=== PATIENT | female | born 1970 | race Caucasian/White ===

== ENCOUNTER → 2024-01-01 14:40 | Outpatient (REF) | payer OTHER, SELFPAY | LOC: WDC 14:40 | PROVIDERS: ATTENDING PHYSICIAN Obstetrics & Gynecology; FAMILY PHYSICIAN Physician Assistant Medical | DX: Z12.31 Encounter for screening mammogram for malignant neoplasm of breast (principal) | CPT/HCPCS: 77063; 77067 ==

== ENCOUNTER → 2024-06-28 08:20 | Outpatient (REF) | payer OTHER, SELFPAY | LOC: DHCBC/DCA 08:20 | PROVIDERS: ATTENDING PHYSICIAN Internal Medicine; FAMILY PHYSICIAN Family Medicine | DX: I25.10 Atherosclerotic heart disease of native coronary artery without angina pectoris (principal); R06.09 Other forms of dyspnea; R55 Syncope and collapse; Z95.0 Presence of cardiac pacemaker; I47.29 Other ventricular tachycardia | CPT/HCPCS: 78452; 93017; A9500; J2785 ==

== ENCOUNTER → 2024-11-14 16:02 | Outpatient (REF) | payer OTHER, SELFPAY | LOC: RAD 16:02 | PROVIDERS: ATTENDING PHYSICIAN Physician Assistant Medical | DX: J40 Bronchitis, not specified as acute or chronic (principal) | CPT/HCPCS: 71046 ==

== ENCOUNTER → 2025-01-06 11:11 | Outpatient (REF) | payer OTHER, SELFPAY | LOC: HWRAD 11:11 | PROVIDERS: ATTENDING PHYSICIAN Physician Assistant; FAMILY PHYSICIAN Physician Assistant Medical | DX: E04.1 Nontoxic single thyroid nodule (principal) | CPT/HCPCS: 76536 ==

== ENCOUNTER 2025-03-17 17:23 | Inpatient (IN) | payer OTHER, SELFPAY ==
[2025-03-17] VITALS (7 sets, daily range): BP systolic 118–149; BP diastolic 74–93; BMI 31.9
[2025-03-17 13:56] LABS: % Basophils 0.5 % (0-2); % Eosinophils 1.5 % (0-6); % Immature Granulocytes 0.3 % (0-0.5); % Lymphocytes 18.1 % (20.5-51.1); % Monocytes 6.6 % (1.7-9.3); Absolute Eosinophils 0.1 10^3/uL (0-0.7); Absolute Lymphocytes 1.4 10^3/uL (1.2-3.4); Absolute Monocytes 0.5 10^3/uL (0.1-0.6); Absolute Neutrophils 5.5 10^3/uL (1.4-6.5); Hematocrit 38.4 % (37.0-47.0); Hemoglobin 13.5 g/dL (12.0-16.0); Mean Corp Hgb Conc. 35.2 g/dL (33.0-37.0); Mean Corpuscular Hgb 30.6 pg (27.0-31.0); Mean Corpuscular Volume 87.1 fL (81.0-99.0); Mean Platelet Volume 10.8 fL (7.4-10.4); Nucleated Red Blood Cells % 0 %; Platelet Count 195 10^3/uL (130-400); Red Blood Cell Count 4.41 10^6/uL (4.20-5.40); Red Cell Dist. Width 11.9 % (11.5-14.5); White Blood Cell Count 7.6 10^3/uL (4.8-10.8)
[2025-03-17 14:14] LABS: ALT (SGPT) 25 U/L (0-35); AST (SGOT) 30 U/L (14-36); Albumin 4.6 g/dl (3.5-5.0); Alkaline Phosphatase 65 U/L (38-126); Blood Urea Nitrogen 12 mg/dl (7-17); Calcium 9.7 mg/dl (8.4-10.2); Carbon Dioxide 25 mmol/L (22-30); Chloride 109 mmol/L (98-107); Glucose 100 mg/dl (70-99); Sodium 140 mmol/L (135-145); Total Bilirubin 0.7 mg/dl (0.2-1.3); Total Protein 6.9 g/dl (6.3-8.2); eGFR > 60.00
[2025-03-17 14:21] LABS: Troponin I < 0.012 ng/ml
--- NOTE | 2025-03-17 16:25 | ED.GENMED ---
History of Present Illness
General
Chief Complaint: Chest Problem
Source: patient
Exam Limitations: none
Time Seen by Provider: 03/17/25 16:07
History of Present Illness
History of Present Illness:
54-year-old female presents in referral from cardiology office. She has a history of heart block requiring pacemaker. She had an episode yesterday which sounds like a near syncopal episode. She reported this episode to the vice and was called by
cardiology today saying she had an episode of heart rate in the 220s. She was advised to come here for admission and possible defibrillator placement while here. Currently she has no chest pain. Her only complaint is slight anxiety about her
admission. No leg swelling. No fevers.
Past History
Past History
ED Past Medical History: HTN and Hypothyroidism
ED Past Surgical History:
Social History
Tobacco: Non-smoker
Alcohol: None
Personal:
Living: with family
Phy Exam
Physical Exam
Physical Exam:
General: Well-appearing female no acute respiratory distress
HEENT normocephalic atraumatic
Heart: Slightly tachycardic but regular lungs: Clear no wheeze
Extremities: No cyanosis or edema
Skin: Warm no rash
Course
Orders/Labs/Results
Orders:
Orders
03/17/25 13:26
Electrocardiogram (*1) Urgent
Reason for Study: Chest Pain
EKG- Treatment ONCE
03/17/25 13:46
Complete Blood Count/With Diff Urgent
Comprehensive Metabolic Panel Urgent
Troponin I Urgent
Abnormal Lab Results
03/17/25
13:46
MPV 10.8 H fL
(7.4-10.4)
Lymphocytes % 18.1 L %
(20.5-51.1)
Chloride 109 H mmol/L
(98-107)
Glucose 100 H mg/dl
(70-99)
03/17/25 13:46
03/17/25 13:46
Vital Signs
Initial and Last Documented VS:
Initial Vital Signs
Temp Pulse Resp BP Pulse Ox
98.2 F 104 22 149/93 98
03/17/25 13:37 03/17/25 13:37 03/17/25 13:37 03/17/25 13:37 03/17/25 13:37
Last Documented Vital Signs
Temp Pulse Resp BP Pulse Ox
98.3 F 105 18 139/83 97
03/17/25 16:10 03/17/25 16:10 03/17/25 16:10 03/17/25 16:10 03/17/25 16:10
MDM/Problems Addressed
Differential Diagnosis Includes:
Patient sent in by cardiology for tacky arrhythmia she sustained yesterday that was caught on her pacemaker. She had near syncopal symptoms with this episode. She was advised to come here for admission and defibrillator placement. Cardiology made
aware that she was here labs reviewed without significant finding. She is stable with slight tachycardia here. Will admit to medicine per cardiology recommendation
*Critical Care Note
Total Time (30-74mins, 75-104mins- exclusive of procedures): Not Applicable
ED Attending Note
-
Portions of this chart may have been created with voice recognition software.� Occasional wrong word or��sound alike� substitutions may have occurred due to the inherent limitations of voice recognition software.
Discharge Plan
Departure
Patient Disposition: Admit
Date of Disposition: 03/17/25
Time of Disposition: 16:28
Presentation/result/management discussed w/ accepting MD/DO: Hospitalist
Discharge Problem:
Near syncope
Prescriptions:
No Action
cetirizine 10 MG tablet
10 mg PO DAILY
levothyroxine 88 MCG tablet
88 mcg PO DAILY
diphenhydramine-acetaminophen [Tylenol PM Extra Strength] 25-500 mg Tablet
2 tab PO HSPRN PRN (Reason: sleep) Qty: 0
Visbiome 112.5 billion cell Capsule
1 cap PO DAILY Qty: 0
multivitamin Tablet
1 tab PO DAILY
losartan-hydrochlorothiazide 100-12.5 mg Tablet
1 tab PO DAILY
verapamil 180 mg Tablet Extended Release
180 mg PO QPM
aspirin 81 mg Tablet,Delayed Release (Dr/Ec)
81 mg PO QPM
rosuvastatin [Crestor] 5 mg Tablet
5 mg PO QPM
Interventions
Interventions:
*Risk Screen - Suicide Last Done: 03/17/25 13:37
*General Assessment Last Done: 03/17/25 13:37
*Neglect/Abuse Screening Last Done: 03/17/25 13:37
ED- Cardiac Assessment Last Done: 03/17/25 16:13
ED- Pulmonary Assessment Last Done: 03/17/25 16:13
Discharge Date and Time
Print Language: ALBANIAN
--- NOTE | 2025-03-17 16:26 | CON.CAR ---
Addendum entered and electronically signed by Khurram Page MD 03/17/25 17:35:
Patient seen and examined in collaboration with HEALTHCARE BUSINESS ANALYST; agree with below.
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
interrogation revealed NSVT.
- The patient will be admitted to the hospital service for observation over the weekend.
- Will add beta-sindhu; continue calcium channel sindhu, hold HCTZ for now.
- Patient will undergo an echocardiogram today to thoroughly reassess cardiac function.
- Patient will undergo cardiac catheterization on Thursday for definitive ischemic reevaluation.
- Patient will subsequently undergo device upgrade to an ICD, likely on Thursday.
- Telemetry monitoring; will follow.
Original Note:
Consultation
Consultation Request
Date/Time Consultation Requested: 03/17/2025 16:30
Date/Time Consultation Performed: 03/17/2025 16:30
Requesting Provider: Dr. Berger
Performing Provider: LAVONNE Joya for Dr. Page
Reason for Consultation: Ventricular tachycardia
Medical History
-
Chief Complaint: Presyncope
History of Present Illness:
Jodie Rowan is a 54-year-old female (known to Dr. Henry, her primary supervisor stave cutting), with PSVT, NSVT, first-degree AV block, tachycardia/bradycardia syndrome status post Medtronic dual-chamber pacemaker, elevated coronary artery calcium score,
hypertension, dyslipidemia, & family history of premature CAD presents to the emergency department with a chief complaint of presyncope. She was feeling unwell so sent a transmission from her device. A remote alert was received yesterday morning
by the outpatient device clinic for nonsustained ventricular tachycardia. NSVT lasted 9 seconds with a rate of 215 bpm. She is having no chest pain, shortness of breath, nor palpitations.
Past Medical History
Past Medical History: Arrhythmias (PSVT, NSVT), HTN, Hypercholesterolemia and Other (Elevated coronary artery calcium score)
Past Surgical History: , Gynecological and Other (ENT)
Social History
Tobacco: Non-Smoker (Never)
Alcohol: None
Personal:
Living: With Family
Family History
Family History: Reviewed & Not Pertinent
Allergies / Home Medications
Allergy/AdvReac Type Severity Reaction Status Date / Time
No Known Allergies Allergy Verified 03/17/25 16:09
�Medication �Instructions �Recorded �Confirmed �Type
cetirizine 10 mg tablet 10 mg PO DAILY Allergies 10/27/13 03/17/25 History
levothyroxine 88 mcg tablet 88 mcg PO DAILY Thyroid 01/17/17 03/17/25 History
Lactobac no.2-Bifidobac no.1-S. 1 cap PO DAILY ##0 04/23/23 03/17/25 History
thermo 112.5 billion cell capsule
(Visbiome)
diphenhydramine 25 2 tab PO HSPRN PRN sleep ##0 04/23/23 03/17/25 History
mg-acetaminophen 500 mg tablet
(Tylenol PM Extra Strength)
multivitamin 1 tab PO DAILY 10/13/23 03/17/25 History
losartan 100 1 tab PO DAILY 10/30/23 03/17/25 History
mg-hydrochlorothiazide 12.5 mg
tablet
aspirin 81 mg tablet,delayed 81 mg PO QPM 03/17/25 03/17/25 History
release
rosuvastatin 5 mg tablet (Crestor) 5 mg PO QPM 03/17/25 03/17/25 History
verapamil 180 mg tablet,extended 180 mg PO QPM 03/17/25 03/17/25 History
release
Review of Systems
-
History Source: Patient
All other systems: Negative unless noted
Constitutional: No Symptoms
EENT: No Symptoms
Respiratory: No Symptoms
Cardiac: No Symptoms
Abdomen/GI: No Symptoms
: No Symptoms
Musculoskeletal: No Symptoms
Skin: No Symptoms
Neurological: No Symptoms
Endocrine: No Symptoms
Hematologic/Lymphatic: No Symptoms
Physical Exam
Vital Signs
Temp Pulse Resp BP Pulse Ox
98.3 F 105 18 139/83 97
03/17/25 16:10 03/17/25 16:10 03/17/25 16:10 03/17/25 16:10 03/17/25 16:10
Lab Results
03/17/25 13:46
03/17/25 13:46
Troponin I < 0.012 ng/ml 03/17/25 13:46
Physical Exam
General: Well Developed, Well Nourished, No Apparent Distress and Comfortable
HEENT: Normocephalic, Anicteric and Moist Mucous Membranes
Respiratory: Clear and Non Labored Respirations
Cardiac: S1/S2 and Regular Rhythm; Negative Peripheral Edema
Breast: Deferred by me
GI: Soft, Non Distended and Normal Bowel Sounds
Rectal: Deferred by Provider
Genito-urinary: No Costovertebral Tender
Musculoskeletal: No Clubbing and No Cyanosis
Skin: Warm and Dry
Neuro: AO x 3
Hematologic/Lymphatic: No Lymphadenopathy
Psych: Calm
Impression / Plan
-
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
emergency department with a chief complaint of presyncope. A device alert the day prior to admission showed NSVT.
Primary supervisor stave cutting: Dr. Henry
NSVT
- Echocardiogram today, no acute findings by TTE 02/2023 I anticipate this will be unchanged
- Start metoprolol tartrate 25 mg twice daily
- Cardiac catheterization on Thursday given her elevated coronary artery calcium score, ventricular arrhythmia, and no recent ischemic evaluation
- If cardiac catheterization does not demonstrate acute findings, ICD
Hypertension
- Metoprolol tartrate started, hold HCTZ
- Follow BP, adjust medical therapy as indicated
Elevated coronary artery calcium score - 86% (RCA 20)
- Fasting lipid panel in a.m., goal LDL <70
- In the outpatient setting, her most recent LDL was 165 in March,
Tachycardia/bradycardia syndrome status post Medtronic dual-chamber pacemaker
Hypothyroidism with thyroid nodules, continue current dose of levothyroxine, TSH with reflex to T4 in a.m.
PSVT, continue beta-sindhu
SUBJECTIVE:
As above.
DATA:
Transthoracic echocardiogram, 03/17/2025:
Ordered & pending
Cardiac MRI, 10/15/2023:
Normal thickness, wall motion, contractility of the left ventricle. Calculated left ventricular ejection fraction of 55%.
There is no evidence for abnormal enhancement of the left ventricle. There is no evidence for infiltrative cardiomyopathy by MRI.
Left atrium is of normal size with AP dimension of 3.5 cm, within normal range of less than 4.1 cm.
The right atrium appears subjectively within normal limits.
The thoracic aorta has normal caliber.
There are no findings that would suggest sarcoidosis, including no evidence for mediastinal or hilar lymphadenopathy.
Normal morphology, wall motion, contractility of the right ventricle.
No significant valvular dephasing jet identified by MRI.
Data Reviewed
-
EKG: Report Reviewed by me
Radiology: Report Reviewed by me
MRI: Report Reviewed by me
Medical Tests (Nuc Med, Echo etc): Report Reviewed by me
Labs: Labs Reviewed by me
Old Records: Reviewed
--- NOTE | 2025-03-17 16:41 | HPS.HSE ---
Addendum entered and electronically signed by Eugenio Lyle MD 03/17/25 17:23:
I saw and examined the patient.
The Jose Pichardo note was reviewed and I agree with the note.
54 yo female past medical history of past medical history of hypertension, hypothyroidism, heart block since was pacemaker implantation is presenting from home with presyncope. Patient transported device and for the cardiology office. Per
cardiology correspondence it was noted that patient with NSVT and was recommended to come into the hospital. Currently patient without any symptoms.
General: Well Developed, Well Nourished and No Apparent Distress
HEENT: NormoCephalic, Moist mucous membranes and Atraumatic
Respiratory: Clear
Cardiac: S1/S2 and Regular Rhythm; No Murmur or Rub
GI: Soft, Non Tender, Non Distended and Normal Bowel Sounds; No Organomegaly
Musculoskeletal: No Clubbing, No Cyanosis and No Edema
Skin: No Rash
Neuro: AO x 3 and Nonfocal/grossly intact
Psych: Calm
A/P
Presyncope secondary to arrhythmia/NSVT
Primary hypertension
Hyperlipidemia
History of premature CAD
Hypothyroidism
Tachybradycardia syndrome status post pacemaker implantation
Cardiology correspondence noted
Plan for cardiac catheterization Thursday
Undergoing echocardiogram currently
Plan to start patient on beta-sindhu
Check troponin. First set negative.
Hold HCTZ
Check electrolytes daily
Check magnesium
Monitor on telemetry
Admit to IVU
DVT prophylaxis
Discussed with spouse at bedside in detail
I spent a total of 80 minutes with the patient or on the floor. More than 50% of this time involved counseling and coordination of care.
Original Note:
Family Physician
-
Family Physician: Karina Baugh
Chief Complaint
-
near syncope
History of Present Illness
54-year-old female with past medical history of hypertension and hypothyroidism, heart block with pacer in place presents in referral from cardiology office. she felt like she was gonna pass out yesterday morning while she was standing in the
bathroom. she transmitted her episode to the cardiology. it was noted that her HR was in 200's at that time. denied palpitation. she noted to have chest discomfort a week ago. denied DELGADO. denied fever, chills, congestion, cough. denied abdominal
pain,n,v,d. denied dysuria or hematuria.
Medical History
Past Medical History
Past Medical History: Reports Other
Additional Past Medical History:
Hypertension and hypothyroidism
Past Surgical History: Reports Other
Additional Past Surgical History:
Pacemaker, diabetes, tubal ligation, rhinoplasty
Social History
Alcohol: None
Drug: None
Personal:
Living: With Family
Family History
Family History: Not pertinent
Allergies / Home Medications
Allergies reflects when Allergies were last updated in [facility].
Home Medications with original date entered in [facility]
Allergy/Medication List:
Allergies
Allergy/AdvReac Type Severity Reaction Status Date / Time
No Known Allergies Allergy Verified 03/17/25 16:09
Home Medications
cetirizine 10 mg tablet 10 mg PO DAILY Allergies 10/27/13
levothyroxine 88 mcg tablet 88 mcg PO DAILY Thyroid 01/17/17
Lactobac no.2-Bifidobac no.1-S. thermo 112.5 billion cell capsule (Visbiome) 1 cap PO DAILY ##0 04/23/23
diphenhydramine 25 mg-acetaminophen 500 mg tablet (Tylenol PM Extra Strength) 2 tab PO HSPRN PRN sleep ##0 04/23/23
multivitamin 1 tab PO DAILY 10/13/23
losartan 100 mg-hydrochlorothiazide 12.5 mg tablet 1 tab PO DAILY 10/30/23
aspirin 81 mg tablet,delayed release 81 mg PO QPM 03/17/25
rosuvastatin 5 mg tablet (Crestor) 5 mg PO QPM 03/17/25
verapamil 180 mg tablet,extended release 180 mg PO QPM 03/17/25
Review of Systems
-
Constitutional: Reports No Symptoms
EENT: Reports No Symptoms
Respiratory: Reports No Symptoms
Cardiac: Reports No Symptoms
Abdomen/GI: Reports No Symptoms
: Reports No Symptoms
Musculoskeletal: Reports No Symptoms
Skin: Reports No Symptoms
Neurological: Reports No Symptoms
Endocrine: Reports No Symptoms
Hematologic/Lymphatic: Reports No Symptoms
Psych: Reports No Symptoms
Physical Exam
Vital Signs
Vital Signs
Temp Pulse Resp BP Pulse Ox
98.3 F 100 18 139/83 96
03/17/25 16:10 03/17/25 16:30 03/17/25 16:10 03/17/25 16:10 03/17/25 16:30
Physical Exam
General: Well Developed, Well Nourished and No Apparent Distress
HEENT: NormoCephalic, Moist mucous membranes and Atraumatic
Respiratory: Clear
Cardiac: S1/S2 and Regular Rhythm; No Murmur or Rub
GI: Soft, Non Tender, Non Distended and Normal Bowel Sounds; No Organomegaly
Rectal: Deferred by Provider
Musculoskeletal: No Clubbing, No Cyanosis and No Edema
Skin: No Rash
Neuro: AO x 3 and Nonfocal/grossly intact
Psych: Calm
Laboratory Results
-
03/17/25 13:46
03/17/25 13:46
Laboratory Results
Total Bilirubin 0.7 mg/dl (0.2-1.3) 03/17/25 13:46
AST 30 U/L (14-36) 03/17/25 13:46
ALT 25 U/L (0-35) 03/17/25 13:46
Alkaline Phosphatase 65 U/L (38-126) 03/17/25 13:46
Troponin I < 0.012 ng/ml 03/17/25 13:46
Data Reviewed
-
Lab Data: Labs Reviewed by me
Impression/Plan
-
# Near syncope/tachycardia
# History of heart block requiring pacemaker
- Cardiology plan for defib placement
- Cardiology consulted
- EKG with normal sinus rhythm
-obtain ECHO, lipid profile and TSH in am
- Aspirin continued
-metoprolol as per cardiology
-plan for cath on Thursday and Defib on Thursday
-will trend trop and add on mag
# Hypothyroidism
- Levothyroxine continued
# Essential hypertension
- Losartan,verapamil continued
-hold hCtz
# Hyperlipidemia
- Crestor continued
# DVT prophylaxis
- Lovenox subcu
# CODE STATUS
- Full code
[2025-03-17 17:45] LABS: Magnesium 1.9 mg/dl (1.6-2.3)
[2025-03-17] MEDS: ASPIR LOW (ENTERIC COATED) 81 MG PO (18:12)
[2025-03-17] MEDS: CALAN EXTENDED RELEASE 180 MG PO (18:12)
[2025-03-17] MEDS: LOVENOX 40 MG SC (18:14)
[2025-03-17 20:06] LABS: Troponin I < 0.012 ng/ml
[2025-03-17] MEDS: LOPRESSOR 25 MG PO (20:09)
--- NOTE | 2025-03-18 01:32 | PTCARENOTE ---
Pt. admitted to room 2242 from ED this shift AAOx3, VSS, NSR on the monitor. No complaints of any chest discomfort or lightheadedness. Ambulates independently with steady gait. Oriented to room and plan of care, understanding verbalized. Pt.
currently sleeping.
[2025-03-18 02:24] VITALS: BP 143/82
[2025-03-18] MEDS: BENADRYL 25 MG PO (02:27)
[2025-03-18] MEDS: TYLENOL 1000 MG PO ×2 (02:28→22:53)
[2025-03-18 03:37] LABS: HDL Cholesterol 49 mg/dl; LDL Cholesterol, Calculated 64 mg/dl; Total Cholesterol 131 mg/dl (50-199); Triglyceride 93 mg/dl (10-149); Very Low Density Lipoprotein 18 mg/dl (0-30)
[2025-03-18 03:49] LABS: Troponin I < 0.012 ng/ml
[2025-03-18 04:08] LABS: TSH Reflex To Free T4 9.59 uIU/ml (0.47-4.68)
[2025-03-18 04:37] LABS: Free T4 1.17 ng/dl (0.78-2.19)
[2025-03-18] MEDS: SYNTHROID 88 MCG PO (06:07)
[2025-03-18 08:17] VITALS: BP 138/87
[2025-03-18] MEDS: LOPRESSOR 25 MG PO ×2 (08:30→20:14)
[2025-03-18] MEDS: COZAAR 100 MG PO (08:30)
[2025-03-18] MEDS: VISBIOME PO (08:37)
[2025-03-18 09:25] LABS: Blood Urea Nitrogen 12 mg/dl (7-17); Calcium 9.5 mg/dl (8.4-10.2); Carbon Dioxide 23 mmol/L (22-30); Chloride 110 mmol/L (98-107); Estimated Creatinine Clearance 79 ml/min; Glucose 97 mg/dl (70-99); Potassium 4.1 mmol/L (3.5-5.1); Sodium 141 mmol/L (135-145); eGFR > 60.00
--- NOTE | 2025-03-18 11:15 | W.PN.HOSP.TC ---
Today's Communication/Plan
-
Continue to monitor on telemetry
Continue with Lopressor
Monitor blood pressure
cath on Thursday
Assessment / Plan
Assessment / Plan
General: Well Developed, Well Nourished and No Apparent Distress
HEENT: NormoCephalic, Moist mucous membranes and Atraumatic
Respiratory: Clear
Cardiac: S1/S2 and Regular Rhythm; No Murmur or Rub
GI: Soft, Non Tender, Non Distended and Normal Bowel Sounds; No Organomegaly
Musculoskeletal: No Clubbing, No Cyanosis and No Edema
Skin: No Rash
Neuro: AO x 3 and Nonfocal/grossly intact
Psych: Calm
# NSVT symptomatic
# History of heart block requiring pacemaker
- Cardiology plan for defib placement
- Cardiology consulted
- EKG with normal sinus rhythm
-EF of 60 to 65% with no regional wall motion abnormalities are seen. Normal right medical size and function. No significant valvular disease.
- Aspirin continued
- Started on Lopressor 25 mg twice daily
-plan for cath on Thursday and possible defib on Thursday
- Troponin remain negative. Mag 2.
# Hypothyroidism
- Levothyroxine continued
# Essential hypertension
- Losartan,verapamil continued
-hold hCtz as started on Lopressor.
# Hyperlipidemia
- Crestor continued
# DVT prophylaxis
- Lovenox subcu
# CODE STATUS
- Full code
Anticipated Discharge: > 48 hours
Subjective/Interval History
-
Date of Service: March 18, 2025
Denies any lightheaded dizziness or chest pain
Objective Data
-
Labs:
Laboratory Results
03/18/25
08:45
Sodium 141
Potassium 4.1
Chloride 110 H
Carbon Dioxide 23
BUN 12
Creatinine 0.8
Glucose 97
Calcium 9.5
Vital Signs:
Vital Signs
Temp Pulse Resp BP Pulse Ox
97.8 F 80 14 138/87 98
03/18/25 08:37 03/18/25 08:17 03/18/25 08:37 03/18/25 08:17 03/18/25 08:17
I&O
03/17/25 03/18/25 03/19/25
06:59 06:59 06:59
Intake Total 480 / 480
Balance 480 / 480
[2025-03-18 13:33] VITALS: BP 125/86
--- NOTE | 2025-03-18 13:45 | W.PN.CD ---
Today's Communication / Plan
-
- Normal LVEF on echo yesterday with no significant valvular disease.
- Continue metoprolol tartrate 25 mg twice daily; telemetry stable.
- Will undergo cardiac catheterization on Thursday given her elevated coronary artery calcium score, ventricular arrhythmia, and no recent ischemic evaluation.
- Continue current doses of verapamil and Lopressor.
Impression / Plan
-
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
emergency department with a chief complaint of presyncope. A device alert the day prior to admission showed NSVT.
Primary spaghetti press helper: Dr. Henry
NSVT
- Normal LVEF on echo yesterday with no significant valvular disease.
- Continue metoprolol tartrate 25 mg twice daily; telemetry stable.
- Will undergo cardiac catheterization on Thursday given her elevated coronary artery calcium score, ventricular arrhythmia, and no recent ischemic evaluation.
- If cardiac catheterization does not demonstrate acute findings, then we will proceed with upgrade to ICD.
Tachycardia/bradycardia syndrome status post Medtronic dual-chamber pacemaker
- Device found the NSVT.
Hypertension
- Fairly controlled.
- Continue current doses of verapamil and Lopressor.
- Hydrochlorothiazide discontinued.
Mildly elevated coronary artery calcium score - 86% (RCA 20)
- LDL is at goal of <70 (64)
- Continue current dose of rosuvastatin.
Hypothyroidism with thyroid nodules, continue current dose of levothyroxine, TSH with reflex to T4 in a.m.
PSVT, continue beta-sindhu
SUBJECTIVE:
No major events overnight. No cardiac complaints this a.m.
DATA:
Transthoracic echocardiogram, 03/17/2025:
Ordered & pending
Cardiac MRI, 10/15/2023:
Normal thickness, wall motion, contractility of the left ventricle. Calculated left ventricular ejection fraction of 55%.
There is no evidence for abnormal enhancement of the left ventricle. There is no evidence for infiltrative cardiomyopathy by MRI.
Left atrium is of normal size with AP dimension of 3.5 cm, within normal range of less than 4.1 cm.
The right atrium appears subjectively within normal limits.
The thoracic aorta has normal caliber.
There are no findings that would suggest sarcoidosis, including no evidence for mediastinal or hilar lymphadenopathy.
Normal morphology, wall motion, contractility of the right ventricle.
No significant valvular dephasing jet identified by MRI.
Physical Exam
Vital Signs/Labs
Vital Signs
Temp Pulse Resp BP Pulse Ox
98.1 F 82 16 138/87 98
03/18/25 13:39 03/18/25 13:39 03/18/25 13:39 03/18/25 08:17 03/18/25 13:39
03/17/25 03/18/25 03/19/25
06:59 06:59 06:59
Actual Weight 81.7 kg
03/17/25 13:46
03/18/25 08:45
Magnesium 2.0 mg/dl (1.6-2.3) 03/18/25 08:45
Triglycerides 93 mg/dl (10-149) 03/18/25 02:38
LDL Cholesterol, Calc 64 mg/dl 03/18/25 02:38
VLDL Cholesterol, Calc 18 mg/dl (0-30) 03/18/25 02:38
HDL Cholesterol 49 mg/dl 03/18/25 02:38
Free T4 1.17 ng/dl (0.78-2.19) 03/18/25 02:38
LAB Results
03/17/25 03/17/25 03/18/25
13:46 19:35 02:38
Troponin I < 0.012 < 0.012 < 0.012
Physical Exam
Constitutional: No acute distress and Comfortable
EENT: Anicteric
Cardiovascular: Rhythm & rate is regular, Pedal edema is absent, Systolic murmur absent and S1S2 is normal
Respiratory: Respiratory effort normal and Lungs clear to auscul.
GI: Soft
Neuro/Psych: AO x 3
Other: Skin (Warm, dry, intact)
Data Reviewed
-
Date of Service: March 18, 2025
EKG: Tracing Personally Visualized and interpreted (Telemetry: Sinus rhythm)
Echo: Tracing Personally Visualized and interpreted (LVEF 60-65%; no significant valvular disease.)
Labs: Labs Reviewed by me
[2025-03-18 15:35] VITALS: BP 133/82
[2025-03-18 15:37] VITALS: BMI 31.7
--- NOTE | 2025-03-18 15:50 | PTCARENOTE ---
assessment stable as documented. no complaints. amb in hallways
[2025-03-18] MEDS: CRESTOR 5 MG PO (18:18)
[2025-03-18] MEDS: ASPIR LOW (ENTERIC COATED) 81 MG PO (18:18)
[2025-03-18] MEDS: CALAN EXTENDED RELEASE 180 MG PO (18:18)
[2025-03-18] MEDS: LOVENOX 40 MG SC (19:17)
[2025-03-18 20:12] VITALS: BP 119/84
[2025-03-18 22:52] VITALS: BP 111/63
[2025-03-18] MEDS: BENADRYL 50 MG PO (22:54)
--- NOTE | 2025-03-19 02:41 | PTCARENOTE ---
Pt. in NSR mostly 60-70's, does get tachy with ambulation (up to the 120's); asymptomatic. No complaints of pain/discomfort, currently sleeping.
[2025-03-19 04:15] VITALS: BP 111/61
[2025-03-19 05:08] LABS: Blood Urea Nitrogen 23 mg/dl (7-17); Calcium 8.9 mg/dl (8.4-10.2); Carbon Dioxide 24 mmol/L (22-30); Chloride 111 mmol/L (98-107); Estimated Creatinine Clearance 70 ml/min; Glucose 111 mg/dl (70-99); Magnesium 1.9 mg/dl (1.6-2.3); Potassium 4.1 mmol/L (3.5-5.1); Sodium 141 mmol/L (135-145); eGFR > 60.00
[2025-03-19] MEDS: SYNTHROID 88 MCG PO (06:30)
[2025-03-19 06:55] VITALS: BP 132/73
[2025-03-19] MEDS: COZAAR 100 MG PO (08:12)
[2025-03-19] MEDS: VISBIOME 1 CAP PO (08:12)
[2025-03-19] MEDS: LOPRESSOR 25 MG PO ×2 (08:12→20:43)
--- NOTE | 2025-03-19 10:55 | W.PN.HOSP.TC ---
Today's Communication/Plan
-
N.p.o. past midnight
Continue Lopressor
Cardiac cath in the morning
Assessment / Plan
Assessment / Plan
General: Well Developed, Well Nourished and No Apparent Distress
HEENT: NormoCephalic, Moist mucous membranes and Atraumatic
Respiratory: Clear
Cardiac: S1/S2 and Regular Rhythm; No Murmur or Rub
GI: Soft, Non Tender, Non Distended and Normal Bowel Sounds; No Organomegaly
Musculoskeletal: No Clubbing, No Cyanosis and No Edema
Skin: No Rash
Neuro: AO x 3 and Nonfocal/grossly intact
Psych: Calm
# NSVT symptomatic
# History of heart block requiring pacemaker
- Cardiology plan for defib placement
- Cardiology consulted
- EKG with normal sinus rhythm
- EF of 60 to 65% with no regional wall motion abnormalities are seen. Normal right medical size and function. No significant valvular disease.
- Aspirin continued
- Started on Lopressor 25 mg twice daily
- plan for cath on Thursday and possible defib on Thursday
- Troponin remain negative.
# Hypothyroidism subclinical
- Levothyroxine continued
- In the setting of NSVT. Hold off on increasing Synthroid for now and repeat TFTs as outpatient
# Essential hypertension
- Losartan,verapamil continued
-hold hCtz as started on Lopressor.
# Hyperlipidemia
- Crestor continued
# DVT prophylaxis
- Lovenox subcu
# CODE STATUS
- Full code
Anticipated Discharge: > 48 hours
Subjective/Interval History
-
Date of Service: March 19, 2025
While ambulating in the hallway patient heart rate increased to 120
Asymptomatic
Heart rate is well-controlled now
Denies any chest pain palpitation
Objective Data
-
Labs:
Laboratory Results
03/19/25
04:23
Sodium 141
Potassium 4.1
Chloride 111 H
Carbon Dioxide 24
BUN 23 H
Creatinine 0.9
Glucose 111 H
Calcium 8.9
Vital Signs:
Vital Signs
Temp Pulse Resp BP Pulse Ox
97.9 F 74 20 132/73 94
03/19/25 06:55 03/19/25 08:00 03/19/25 06:55 03/19/25 06:55 03/19/25 08:00
I&O
03/18/25 03/19/25 03/20/25
06:59 06:59 06:59
Intake Total 480 / 480 980 / 980
Balance 480 / 480 980 / 980
[2025-03-19 12:04] VITALS: BP 129/83
--- NOTE | 2025-03-19 15:26 | PTCARENOTE ---
Pt received this am with no c/o of lightheadedness, dizziness, chest pain or sob. OOB ad kathy in the room. Room air sat 94 - 95%. SR, rate in the 70's to 80's.
[2025-03-19 16:09] VITALS: BP 130/79
--- NOTE | 2025-03-19 17:02 | W.PN.CD ---
Today's Communication / Plan
-
- Continue current doses of verapamil and metoprolol tartrate; telemetry remains stable.
- Cardiac catheterization tomorrow given her elevated coronary artery calcium score, ventricular arrhythmia, and no recent ischemic evaluation.
- If cardiac catheterization does not demonstrate acute findings, then will proceed with upgrade to ICD on Thursday with Dr. German.
- NPO after MN.
Impression / Plan
-
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
emergency department with a chief complaint of presyncope. A device alert the day prior to admission showed NSVT.
Primary telephone answerer: Dr. Henry
NSVT
- Symptomatic (near-syncope).
- Normal LVEF on echo this admission with no significant valvular disease.
- Continue current doses of verapamil and metoprolol tartrate; telemetry remains stable.
- Cardiac catheterization tomorrow given her elevated coronary artery calcium score, ventricular arrhythmia, and no recent ischemic evaluation.
- If cardiac catheterization does not demonstrate acute findings, then will proceed with upgrade to ICD on Thursday with Dr. German.
- NPO after MN.
Tachycardia/bradycardia syndrome status post Medtronic dual-chamber pacemaker
- Device found the NSVT.
- Currently stable.
Hypertension
- Remains fairly controlled.
- Continue verapamil and metoprolol tartrate.
- Hydrochlorothiazide discontinued this admission.
Mildly elevated coronary artery calcium score - 86% (RCA 20)
- LDL is at goal of <70 (64)
- Continue rosuvastatin.
Hypothyroidism with thyroid nodules, continue current dose of levothyroxine, TSH with reflex to T4 in a.m.
PSVT, continue beta-sindhu
DATA:
Transthoracic echocardiogram, 03/17/2025:
Ordered & pending
Cardiac MRI, 10/15/2023:
Normal thickness, wall motion, contractility of the left ventricle. Calculated left ventricular ejection fraction of 55%.
There is no evidence for abnormal enhancement of the left ventricle. There is no evidence for infiltrative cardiomyopathy by MRI.
Left atrium is of normal size with AP dimension of 3.5 cm, within normal range of less than 4.1 cm.
The right atrium appears subjectively within normal limits.
The thoracic aorta has normal caliber.
There are no findings that would suggest sarcoidosis, including no evidence for mediastinal or hilar lymphadenopathy.
Normal morphology, wall motion, contractility of the right ventricle.
No significant valvular dephasing jet identified by MRI.
Physical Exam
Vital Signs/Labs
Vital Signs
Temp Pulse Resp BP Pulse Ox
97.7 F 74 20 129/83 99
03/19/25 16:09 03/19/25 13:00 03/19/25 16:09 03/19/25 12:04 03/19/25 16:09
03/18/25 03/19/25 03/20/25
06:59 06:59 06:59
Actual Weight 81.7 kg 81.1 kg
03/17/25 13:46
03/19/25 04:23
Magnesium 1.9 mg/dl (1.6-2.3) 03/19/25 04:23
Triglycerides 93 mg/dl (10-149) 03/18/25 02:38
LDL Cholesterol, Calc 64 mg/dl 03/18/25 02:38
VLDL Cholesterol, Calc 18 mg/dl (0-30) 03/18/25 02:38
HDL Cholesterol 49 mg/dl 03/18/25 02:38
Free T4 1.17 ng/dl (0.78-2.19) 03/18/25 02:38
LAB Results
03/17/25 03/17/25 03/18/25
13:46 19:35 02:38
Troponin I < 0.012 < 0.012 < 0.012
Physical Exam
Constitutional: No acute distress and Comfortable
EENT: Anicteric
Cardiovascular: Rhythm & rate is regular, Pedal edema is absent, Systolic murmur absent and S1S2 is normal
Respiratory: Respiratory effort normal and Lungs clear to auscul.
GI: Soft
Neuro/Psych: AO x 3
Other: Skin (Warm, dry, intact)
Data Reviewed
-
Date of Service: March 19, 2025
EKG: Tracing Personally Visualized and interpreted (Telemetry: Sinus rhythm/sinus tachycardia)
Medical Tests (PFT, Pathology etc): Discussed with Nurse, Discussed with Patient and Discussed with Family ( and daughter at bedside)
Labs: Labs Reviewed by me
[2025-03-19] MEDS: CALAN EXTENDED RELEASE 180 MG PO (17:46)
[2025-03-19] MEDS: ASPIR LOW (ENTERIC COATED) 81 MG PO (17:46)
[2025-03-19] MEDS: LOVENOX 40 MG SC (17:47)
[2025-03-19] MEDS: CRESTOR 5 MG PO (17:47)
[2025-03-19 20:18] VITALS: BP 138/84
[2025-03-19] MEDS: BENADRYL 50 MG PO (20:44)
[2025-03-19] MEDS: TYLENOL 650 MG PO (20:44)
[2025-03-19 22:13] VITALS: BP 113/79
[2025-03-20] VITALS (16 sets, daily range): BP systolic 101–164; BP diastolic 63–126; BMI 31.8
--- NOTE | 2025-03-20 03:46 | PTCARENOTE ---
NSR on monitor. Yao pain or any discomfort. Pt ambulates independently. NPO for cath in am.
[2025-03-20 04:18] LABS: PT 13.5 Sec (11.4-14.6)
[2025-03-20 04:24] LABS: Blood Urea Nitrogen 15 mg/dl (7-17); Calcium 9.4 mg/dl (8.4-10.2); Carbon Dioxide 25 mmol/L (22-30); Chloride 112 mmol/L (98-107); Estimated Creatinine Clearance 79 ml/min; Glucose 98 mg/dl (70-99); Magnesium 1.9 mg/dl (1.6-2.3); Potassium 3.9 mmol/L (3.5-5.1); Sodium 142 mmol/L (135-145); eGFR > 60.00
[2025-03-20] MEDS: SYNTHROID 88 MCG PO (05:58)
[2025-03-20] MEDS: VISBIOME PO (08:07)
[2025-03-20] MEDS: COZAAR 100 MG PO (08:07)
[2025-03-20] MEDS: LOPRESSOR 25 MG PO ×2 (08:07→20:18)
--- NOTE | 2025-03-20 09:12 | W.PN.CD ---
Today's Communication / Plan
-
Cardiac catheterization today.
Continue antiarrhythmics.
Tentative plan for upgrade of dual chamber PPM to ICD tomorrow (unless reversible ischemic nidus identified during cath).
Impression / Plan
-
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
presents to the emergency department with a chief complaint of presyncope. A device alert the day prior to admission showed NSVT.
Primary lift driver: Dr. Henry
#NSVT
-Symptomatic (near-syncope).
-Normal LVEF on echo this admission with no significant valvular disease.
-Continue current doses of verapamil and metoprolol tartrate; telemetry remains stable.
-Cardiac catheterization today to r/o ischemic substrate as a source for symptomatic NSVT.
-If no identifiable ischemic nidus, plan for upgrade of PPM to ICD tomorrow.
#Tachycardia/bradycardia syndrome
-Chronic, stable.
-Status post Medtronic dual-chamber pacemaker.
-Currently stable.
#Hypertension
-Chronic, fairly controlled.
-Continue verapamil and metoprolol tartrate.
-Hydrochlorothiazide discontinued this admission.
#Mildly elevated coronary artery calcium score - 86% (RCA 20)
- LDL is at goal of <70 (64)
- Continue rosuvastatin.
#Hypothyroidism with thyroid nodules
-Chronic, stable.
-Continue current dose of levothyroxine.
-TSH 9.59.
-Increase levothyroxine to 100 mcg daily, repeat TSH in 6 weeks.
#PSVT
-Chronic, stable.
-Continue metoprolol and verapamil.
Subjective/Interval History:
No acute events.
No subjective complaints.
DATA:
Transthoracic echocardiogram, 03/17/2025:
CONCLUSIONS
LV ejection fraction is 60-65%. No regional wall motion abnormalities are seen.
Normal right ventricular size and function. Pacer wire seen in right ventricle.
No significant valvular disease.
Mild aortic root dilatation (SOV 3.9 cm).
No significant change since the prior study of 03/04/23.
Cardiac MRI, 10/15/2023:
Normal thickness, wall motion, contractility of the left ventricle. Calculated left ventricular ejection fraction of 55%.
There is no evidence for abnormal enhancement of the left ventricle. There is no evidence for infiltrative cardiomyopathy by MRI.
Left atrium is of normal size with AP dimension of 3.5 cm, within normal range of less than 4.1 cm.
The right atrium appears subjectively within normal limits.
The thoracic aorta has normal caliber.
There are no findings that would suggest sarcoidosis, including no evidence for mediastinal or hilar lymphadenopathy.
Normal morphology, wall motion, contractility of the right ventricle.
No significant valvular dephasing jet identified by MRI.
Physical Exam
Vital Signs/Labs
Vital Signs
Temp Pulse Resp BP Pulse Ox
36.7 C 86 18 126/84 95
03/20/25 07:39 03/20/25 09:00 03/20/25 07:39 03/20/25 07:39 03/20/25 07:39
03/18/25 03/19/25 03/20/25
11:59 11:59 11:59
Actual Weight 81.7 kg 81.1 kg 81.4 kg
03/17/25 13:46
03/20/25 03:35
PT 13.5 Sec (11.4-14.6) 03/20/25 03:35
INR 1.00 03/20/25 03:35
Magnesium 1.9 mg/dl (1.6-2.3) 03/20/25 03:35
Triglycerides 93 mg/dl (10-149) 03/18/25 02:38
LDL Cholesterol, Calc 64 mg/dl 03/18/25 02:38
VLDL Cholesterol, Calc 18 mg/dl (0-30) 03/18/25 02:38
HDL Cholesterol 49 mg/dl 03/18/25 02:38
Free T4 1.17 ng/dl (0.78-2.19) 03/18/25 02:38
LAB Results
03/17/25 03/17/25 03/18/25
13:46 19:35 02:38
Troponin I < 0.012 < 0.012 < 0.012
Physical Exam
Constitutional: No acute distress and Comfortable
EENT: Anicteric and Moist mucous membranes
Cardiovascular: Rhythm & rate is regular, Pedal edema is absent, JVD pressure is normal, S1S2 is normal and Murmur/rub/gallop absent
Respiratory: Respiratory effort normal, Lungs clear to auscul., Wheeze Absent, Crackles Absent and Rhonchi Absent
GI: Soft, Distention absent, Flat, Non tender and Normal bowel sounds
Neuro/Psych: AO x 3
Data Reviewed
-
Date of Service: March 20, 2025
Medical Decision Making: Reviewed Test Results, Independent Historian Assessment and Test Interpretation
EKG: Tracing Personally Visualized and interpreted and Report Reviewed by me
Echo: Report Reviewed by me
X-Ray/CT/US/MRI/NUC/PET: Image Personally Visualized and interpreted and Report Reviewed by me
Labs: Labs Reviewed by me
Old Records: Reviewed
--- NOTE | 2025-03-20 09:17 | W.PN.HOSP.TC ---
Today's Communication/Plan
-
Left heart cath today
Continue current medications.
Assessment / Plan
Assessment / Plan
# NSVT symptomatic
# History of sick sinus syndrome with heart block requiring pacemaker
- EKG with normal sinus rhythm
- EF of 60 to 65% with no regional wall motion abnormalities are seen. Normal right medical size and function. No significant valvular disease.
- Aspirin continued
- Started on Lopressor 25 mg twice daily
- plan for cath on Thursday and possible defib on Thursday
- Troponin remain negative.
# Hypothyroidism subclinical
- Levothyroxine continued
- In the setting of NSVT. Hold off on increasing Synthroid for now and repeat TFTs as outpatient
# Essential hypertension
- Losartan,verapamil continued
-hold hCtz as started on Lopressor.
# Hyperlipidemia
- Crestor continued
# DVT prophylaxis
- Lovenox subcu
# CODE STATUS
- Full code
Anticipated Discharge: Within 24 hours
Subjective/Interval History
-
Date of Service: March 20, 2025
Voices no specific complaints.
Denies chest pain or shortness of breath. No nausea vomiting.
Objective Data
-
Labs:
Laboratory Results
03/20/25
03:35
PT 13.5
INR 1.00
Sodium 142
Potassium 3.9
Chloride 112 H
Carbon Dioxide 25
BUN 15
Creatinine 0.8
Glucose 98
Calcium 9.4
Vital Signs:
Vital Signs
Temp Pulse Resp BP Pulse Ox
98.1 F 86 18 126/84 95
03/20/25 07:39 03/20/25 09:00 03/20/25 07:39 03/20/25 07:39 03/20/25 07:39
I&O
03/19/25 03/20/25 03/21/25
06:59 06:59 06:59
Intake Total 980 / 980 200 / 200
Balance 980 / 980 200 / 200
Physical Exam
-
General: No Apparent Distress
HEENT: Moist Mucous Membranes
Respiratory: Non Labored Respirations; Negative Accessory Resp Muscle Use
Cardiac: Regular Rhythm and S1/S2
Neuro: AO x 3
Data Reviewed
-
Labs: Labs Reviewed by me
--- NOTE | 2025-03-20 10:03 | ITS.CL.CATH ---
Balancing Machine Set Up Worker - Catheterization
Cardiac Catheterization
Procedure Report:
CARDIAC CATHETERIZATION REPORT
Date of Procedure: 03/20/2025
Referring: Khurram Page M.D.
INDICATION: Symptomatic nonsustained ventricular tachycardia, elevated coronary artery calcium score, family history of premature coronary artery disease.
PROCEDURE:
1. Left heart catheterization
2. Coronary angiography.
A total of 30 minutes of procedural/moderate sedation was utilized. An independent medical scheduler was present to assist with and help manage the patient's level of consciousness and physiologic status.
ACCESS:
1. 6 Syrian right rate artery using a modified Seldinger technique.
CATHETERS:
1. 5 Syrian JR4.
2. 5 Syrian JL 3.5.
HEMODYNAMIC DATA
Weight (kg): 81.4
AO (s/d/x, mmHg): 128/77/100
LV (s/x mmHg): 128/11
LEFT VENTRICULOGRAPHY: Not performed.
CORONARY ANGIOGRAPHY
Dominance: Right.
Left Main: Normal size, bifurcating vessel. There is no coronary artery disease.
LAD: Normal size vessel giving rise to 1 large diagonal that supplies the distal anterolateral wall. There is no coronary artery disease.
Ramus: Congenitally absent.
Circumflex: Normal size, nondominant vessel giving rise to 1 notable marginal. There is no coronary artery disease.
RCA: Large size, dominant vessel with a large posterolateral branch which supplies the inferior and inferolateral wall. There is no coronary artery disease.
INTERVENTION(S)
None.
Closure Device: Vascular band.
Radiation (mGy): 286.52
DAP (cm2.Gy): 25.4821
Fluoroscopy time (minutes): 2.1
CONCLUSIONS
1. Right dominant circulation with no coronary artery disease. No ischemic nidus for nonsustained ventricular tachycardia identified.
2. Normal filling pressures (LVEDP = 11 mmHg at 81.4 kg).
RECOMMENDATIONS:
1. Expectant management after cardiac catheterization via right radial approach.
2. Limited weight bearing on the right wrist for one week.
3. Continue risk factor modification including blood pressure and lipid control.
4. Stable for planned upgrade of permanent pacemaker to ICD.
Copy to: Khurram Page M.D., Karina Baugh PA-C
Lalito Daugherty DO, FACC, FACP
--- NOTE | 2025-03-20 10:46 | PTCARENOTE ---
Rec'd pt post cath. R radial hemostasis band on. No bleeding/hematoma noted. Pt told this RN that she had some 'floaters in her vision but they are now gone.' Neuro exam performed and WNL. Hermila Melgoza HOME THEATRE TECHNICIAN aware and post cath fluids infusing as ordered.
Currently in bed; call ramses w/in reach.
--- NOTE | 2025-03-20 11:19 | CM ---
Chart reviewed. Patient is independent of ADLS, lives with and college age daughter in a 2 [facility], 1 [facility]ERAJ, 0 DME. Plan is for the patient to return home. CM to follow
--- NOTE | 2025-03-20 11:37 | W.ICD.CONTRA ---
Post ICD/FURNITURE INSPECTOR-D
-
History of GA?: No
LV Function
Left ventricular function study result?: Ejection Fraction >/= 40%
ACEI/ARB/ARNI
Patient already on ACEI/ARB/ARNI: Yes
Beta-Chad
Patient already on Beta Chad: Yes
[2025-03-20] MEDS: TYLENOL 650 MG PO ×2 (17:53→22:10)
[2025-03-20] MEDS: CALAN EXTENDED RELEASE 180 MG PO (17:53)
[2025-03-20] MEDS: CRESTOR 5 MG PO (17:53)
[2025-03-20] MEDS: ASPIR LOW (ENTERIC COATED) 81 MG PO (17:53)
[2025-03-20] MEDS: LOVENOX SC (17:54)
[2025-03-20] MEDS: BENADRYL 50 MG PO (22:10)
[2025-03-21] VITALS (11 sets, daily range): BP systolic 108–155; BP diastolic 67–92; BMI 32.3
[2025-03-21] MEDS: SYNTHROID 88 MCG PO (04:38)
[2025-03-21 05:08] LABS: Hematocrit 32.2 % (37.0-47.0); Hemoglobin 11.2 g/dL (12.0-16.0); Mean Corp Hgb Conc. 34.8 g/dL (33.0-37.0); Mean Corpuscular Hgb 31.1 pg (27.0-31.0); Mean Corpuscular Volume 89.4 fL (81.0-99.0); Platelet Count 168 10^3/uL (130-400); Red Cell Dist. Width 12.1 % (11.5-14.5); White Blood Cell Count 5.6 10^3/uL (4.8-10.8)
[2025-03-21 05:19] LABS: Blood Urea Nitrogen 16 mg/dl (7-17); Calcium 9.2 mg/dl (8.4-10.2); Carbon Dioxide 24 mmol/L (22-30); Chloride 112 mmol/L (98-107); Estimated Creatinine Clearance 91 ml/min; Glucose 95 mg/dl (70-99); Potassium 4.2 mmol/L (3.5-5.1); Sodium 142 mmol/L (135-145); eGFR > 60.00
--- NOTE | 2025-03-21 05:36 | PTCARENOTE ---
pt NSR on monitor, VSS, c/o mild chronic back pain. OOB independently. NPO for ICD
[2025-03-21] MEDS: LOPRESSOR 25 MG PO ×2 (07:41→20:11)
[2025-03-21] MEDS: COZAAR 100 MG PO (07:41)
[2025-03-21] MEDS: VISBIOME PO (07:43)
--- NOTE | 2025-03-21 09:16 | W.PN.CD ---
Today's Communication / Plan
-
- Upgrade to ICD today
Impression / Plan
-
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
presents to the emergency department with a chief complaint of presyncope. A device alert the day prior to admission showed NSVT.
Primary rotary veneer machine operator: Dr. Henry
#Ventricular tachycardia
-Symptomatic (near-syncope).
-Normal LVEF on echo this admission with no significant valvular disease.
-Continue current doses of verapamil and metoprolol tartrate; telemetry remains stable.
-Cardiac catheterization 03/20/25
1. Right dominant circulation with no coronary artery disease. No ischemic nidus for nonsustained ventricular tachycardia identified.
2. Normal filling pressures (LVEDP = 11 mmHg at 81.4 kg).
-Plan for upgrade of PPM to ICD today
- Medtronic PPM - implanted on 10/30/23 - dual chamber.
- Will plan to add ICD lead and use pacer lead as RESOLUTION AGENT-P with preferentially pacing the septal lead
#Tachycardia/bradycardia syndrome
-Chronic, stable.
-Status post Medtronic dual-chamber pacemaker.
-Currently stable.
#Hypertension
-Chronic, fairly controlled.
-Continue verapamil and metoprolol tartrate.
-Hydrochlorothiazide discontinued this admission.
#Mildly elevated coronary artery calcium score - 86% (RCA 20)
- LDL is at goal of <70 (64)
- Continue rosuvastatin.
#Hypothyroidism with thyroid nodules
-Chronic, stable.
-Continue current dose of levothyroxine.
-TSH 9.59.
-Increase levothyroxine to 100 mcg daily, repeat TSH in 6 weeks.
#PSVT
-Chronic, stable.
-Continue metoprolol and verapamil.
Subjective/Interval History:
No acute events.
No subjective complaints.
DATA:
Transthoracic echocardiogram, 03/17/2025:
CONCLUSIONS
LV ejection fraction is 60-65%. No regional wall motion abnormalities are seen.
Normal right ventricular size and function. Pacer wire seen in right ventricle.
No significant valvular disease.
Mild aortic root dilatation (SOV 3.9 cm).
No significant change since the prior study of 03/04/23.
Cardiac MRI, 10/15/2023:
Normal thickness, wall motion, contractility of the left ventricle. Calculated left ventricular ejection fraction of 55%.
There is no evidence for abnormal enhancement of the left ventricle. There is no evidence for infiltrative cardiomyopathy by MRI.
Left atrium is of normal size with AP dimension of 3.5 cm, within normal range of less than 4.1 cm.
The right atrium appears subjectively within normal limits.
The thoracic aorta has normal caliber.
There are no findings that would suggest sarcoidosis, including no evidence for mediastinal or hilar lymphadenopathy.
Normal morphology, wall motion, contractility of the right ventricle.
No significant valvular dephasing jet identified by MRI.
Physical Exam
Vital Signs/Labs
Vital Signs
Temp Pulse Resp BP Pulse Ox
97.7 F 79 18 136/76 98
03/21/25 07:10 03/21/25 07:14 03/21/25 07:10 03/21/25 07:14 03/21/25 07:10
03/20/25 03/21/25 03/22/25
06:59 06:59 06:59
Actual Weight 81.4 kg 82.6 kg
03/21/25 04:32
03/21/25 04:32
PT 13.5 Sec (11.4-14.6) 03/20/25 03:35
INR 1.00 03/20/25 03:35
Magnesium 1.9 mg/dl (1.6-2.3) 03/20/25 03:35
Triglycerides 93 mg/dl (10-149) 03/18/25 02:38
LDL Cholesterol, Calc 64 mg/dl 03/18/25 02:38
VLDL Cholesterol, Calc 18 mg/dl (0-30) 03/18/25 02:38
HDL Cholesterol 49 mg/dl 03/18/25 02:38
Free T4 1.17 ng/dl (0.78-2.19) 03/18/25 02:38
Physical Exam
Constitutional: No acute distress and Comfortable
EENT: Anicteric and Moist mucous membranes
Cardiovascular: Rhythm & rate is regular, Pedal edema is absent and JVD pressure is normal
Respiratory: Respiratory effort normal and Lungs clear to auscul.
GI: Soft, Non tender and Normal bowel sounds
Neuro/Psych: Alert, Oriented and AO x 3
Other: Cardiac Device Site
Data Reviewed
-
Date of Service: March 21, 2025
Medical Decision Making: Reviewed Test Results, Test Interpretation and Review of Case with other Provider
EKG: Tracing Personally Visualized and interpreted
Echo: Report Reviewed by me
X-Ray/CT/US/MRI/NUC/PET: Image Personally Visualized and interpreted
Medical Tests (PFT, Pathology etc): Discussed with Patient
Labs: Labs Reviewed by me
Old Records: Reviewed
--- NOTE | 2025-03-21 09:29 | PTCARENOTE ---
Rec'd pt at handoff. Tele- SR w/ occ. A-pacing. R radial site is c/d/i. No bleeding/hematoma noted. Assessment completed as documented. Pt has no c/o CP/discomfort/SOB at this time. Pt for ICD upgrade today. Zen THOMAS ok for pt to eat breakfast
and NPO after d/t later case. Plan of care reviewed w/ pt and verbalizes understanding.
--- NOTE | 2025-03-21 09:54 | W.PN.HOSP.TC ---
Today's Communication/Plan
-
Upgrade to ICD today
DC patient home when okay from cardiology standpoint
Assessment / Plan
Assessment / Plan
# Nonsustained ventricular tachycardia symptomatic
# History of sick sinus syndrome with heart block requiring pacemaker
- EKG with normal sinus rhythm
- EF of 60 to 65% with no regional wall motion abnormalities are seen. Normal right medical size and function. No significant valvular disease.
- Aspirin continued
- Started on Lopressor 25 mg twice daily
- Left heart cath 03/20 shows Right dominant circulation with no coronary artery disease. No ischemic nidus for nonsustained ventricular tachycardia identified.
- Troponin remain negative.
-EP planning upgrade of her dual-chamber pacemaker with an ICD lead today
# Hypothyroidism subclinical
- Levothyroxine continued
- In the setting of NSVT. Hold off on increasing Synthroid for now and repeat TFTs as outpatient
# Essential hypertension
- Losartan,verapamil continued
-hold hCtz as started on Lopressor.
# Hyperlipidemia
- Crestor continued
# DVT prophylaxis
- Lovenox subcu
# CODE STATUS
- Full code
Anticipated Discharge: Within 24 hours
Subjective/Interval History
-
Date of Service: March 21, 2025
Patient without any specific complaints. Await upgrade to ICD today. Denies any chest pain or shortness of breath.
No nausea or vomiting. No dizziness.
Objective Data
-
Labs:
Laboratory Results
03/21/25
04:32
WBC 5.6
Hgb 11.2 L
Hct 32.2 L
Plt Count 168
Sodium 142
Potassium 4.2
Chloride 112 H
Carbon Dioxide 24
BUN 16
Creatinine 0.7
Glucose 95
Calcium 9.2
Vital Signs:
Vital Signs
Temp Pulse Resp BP Pulse Ox
97.7 F 79 18 136/76 98
03/21/25 07:10 03/21/25 07:14 03/21/25 07:10 03/21/25 07:14 03/21/25 07:10
I&O
03/20/25 03/21/25 03/22/25
06:59 06:59 06:59
Intake Total 200 / 200 766 / 766
Balance 200 / 200 766 / 766
Physical Exam
-
HEENT: Moist Mucous Membranes
Respiratory: Clear to Auscultation
Cardiac: Regular Rhythm and S1/S2
GI: Soft
Neuro: AO x 3
Data Reviewed
-
Labs: Labs Reviewed by me
--- NOTE | 2025-03-21 10:21 | CM ---
Chart reviewed. Patient is independent of ADLS, lives with her and college age daughter in a 2 S[facility], 1 [facility]ER[facility], 0 DME. Patient waiting for an ICD. Plan is for the patient to return home. CM to follow
--- NOTE | 2025-03-21 19:14 | ITS.CL.ICD ---
Children'S Service Supervisor - ICD
Implantable Cardioverter Defibrillator
Procedure Report:
BiV ICD
Bi-Ventricular Implantable Cardiac Defibrillator (BiV-ICD) Placement:
Ms. Hedrick is a 54 yrs old woman with SSS s/p dual chamber pacemaker on 10/30/23 on the right shoulder with left handed dominance is noted to have ventricular tachycardia on beta blockers, is recommended an upgrade to an ICD.
Given her RV lead in place, will add RV ICD lead and use the previous pacing wire for LV pacing for PLATER SUPERVISOR if needed to create MRI compatible system.
Indications:
Idiopathic ventricular tachycardia
Date of the Procedure: 03/21/2025
Pre-Operative Diagnosis: Idiopathic ventricular tachycardia
Post-Operative Diagnosis: Idiopathic ventricular tachycardia
Procedure Performed: PLATER SUPERVISOR-D with BIVENTRICULAR IMPLANTABLE DEFIBRILLATOR IMPLANTATION
Performing physician:
Lynnette German MD
Anesthesia:
See anesthesia records
Detailed Description of the Procedure:
The patient was identified using hospital identification and informed consent obtained for the procedure. The risks were explained to the patient and the family including, but not limited to: Bleeding, infection, arrhythmia, stroke,
vascular/cardiac/lung puncture, surgery, pacemaker dependency/device malfunction. All questions were answered.
A surgical pause was performed in accordance with hospital regulations. Anesthesia service provided sedation as reported separately. Antibiotics administered IV for risk of bacterial colonization. After obtaining informed and written consent, the
patient was brought to the electrophysiology laboratory.
The initial rhythm was sinus rhythm.
The procedure site was meticulously prepared with surgical scrub and allowed to dry with no pooling. Sterile draping was applied to cover the procedure site. The image intensifier was draped with sterile bag and positioned over the patient.
The right infra-clavicular region was prepped and draped in the usual sterile fashion. Local anesthesia was administered subcutaneously using 1% lidocaine / Bupivacaine. A venogram was done that showed occluded axillary vein and collaterals to
subclavian.
The old pacemaker was accessed using the bovie and the old generator was removed from the previous pocket. No fluid noted in the pocket.
The leads were freed from the underlying fascia and fibrous tissue. The Leads were fibrosed and the RV pacing lead could not be released or removed. The decision was made to keep the pacing wire and place another ICD lead.
With guidance from the fluoroscopic, subclavian vein was accessed through the occluded section. The guidewire was advanced into the IVC.
The right ventricular ICD lead was secured in position with an active fixation technique at the apical septal location away from the septal location of the RV pacing lead.
There was excellent sensing, pacing, and impedance from the leads, with no diaphragmatic stimulation at 10 V output.�Bovie cautery, antibiotics, and fluoroscopy were used.
The leads were attached to the pulse generator in standard configuration with acceptable sensing and threshold parameters. The pocket was irrigated with antibiotic solution; the pocket was inspected with no active bleeding noted. The device and the
leads were placed in the pocket.
A Tyrx pouch was installed around the device and the leads.
Deep subcutaneous tissues were closed with 3 layers of 2-0 V loc sutures; and the dermis was reopposed using a running 4-0 Monocryl subcuticular suture. A pressure dressing was applied. Sponge counts / sharp counts were appropriate.
Procedure End:
The procedure was tolerated well. Aquacel bandaged was applied.
Estimated Blood loss:
10 cc
Specimens Removed:
No cultures and no specimens were obtained. No intraoperative pathology was identified.
Urine output:
None
Packs / Drains/ Tubes:
None
Instrument / Sponge Count Correct:
Yes
Flouro time:
3.1min/ 5.31mGy
Complications of the Procedure:
None
Condition of Patient at Time of Transfer:
Hemodynamically stable with no neurological or vascular compromise.
Device information:�
Generator: ThinkSmart; Model: [id number]; Serial # [id number]
Atrial Lead: [employer]; Model: 4574-45; Serial # [id number] - Implanted: 10/30/23
Measured data in the right atrium was sensing of 4.3mV, impedance of 450 ohms and threshold of 0.5 V at 0.4ms
RV Lead: Medtronic; Model: 5076-52; Serial # [id number] - Implanted: 10/30/23
Measured data in the RV lead was sensing of 7mV, impedance of 450 ohms and threshold of 0.75 V at 0.4ms
RV ICD Lead: Medtronic; Model: 6935M-55; Serial # [id number]- Implanted: 03/21/25
Measured data on the RV lead was sensing of 8 mV, impedance of 1150 ohms and threshold of 0.75 V at 0.4ms�
�����������
PROGRAMMING PARAMETERS:�
Sergio parameter settings were AAIR <=> DDDR 60-130 �
����������� Paced AV interval: 180ms
����������� Sensed AV interval: 150 ms.
����������� Rate Adaptive A-V Interval: oFF
Tachy parameter settings:
����������� SVT discrimination: On
����������� AF/AFl: On
����������� SVT limit: 260 msec
����������� VT zone:
Slow VT: 150 bpm - Monitor
����������������������� Fast VT: 180-200 bpm
����������������������� VF: >200 bpm - Shock� x6
�
Summary:
Successful upgrade to ICD lead with previous pacing lead used as LV pacing for MRI compatible system.
Results/Recommendations:
-Please follow up CXR�
1. Please discharge patient with adequate pain control�
Instructions to be given to patient:�
- Please follow up with [facility] at [address] [place] [address] ([phone]) to get your wound checked in 2 weeks of your discharge.
- Do not wet incision site until after it is evaluated at cardiology clinic. No baths or showers until then. Sponge baths / showers are OK but dab dry the dressing after it is wet.�
- Allow 'steri strips' to fall off on their own�
- Do not lift right elbow above shoulder, particularly with sudden jerking movements, for 1 month�
- Do not lift anything weighing more than 5 pounds with the right arm for 1 month�
- If you notice any fevers, shortness of breath, lightheadedness, chest pain, or worsening swelling in the wound site, please contact the arrhythmia clinic, contact your porter head, or present to the hospital for evaluation.�
Lynnette German MD
Electrophysiology
[2025-03-21] MEDS: ASPIR LOW (ENTERIC COATED) 81 MG PO (20:11)
[2025-03-21] MEDS: CALAN EXTENDED RELEASE 180 MG PO (20:11)
[2025-03-21] MEDS: LOVENOX 40 MG SC (20:12)
[2025-03-21] MEDS: CRESTOR 5 MG PO (20:14)
[2025-03-21] MEDS: BENADRYL 50 MG PO (22:20)
[2025-03-21] MEDS: TYLENOL 1000 MG PO (22:20)
[2025-03-22] MEDS: ANCEF 5 IV ×2 (00:06→08:00)
--- NOTE | 2025-03-22 00:20 | PTCARENOTE ---
Assumed care of pt from dayshift. R arm immobilizer on, L chest wall dsg CDI, + radial pulse. Pt tolerated dinner, OOB to void. Denies CP or SOB. SR on tele. VSS.
[2025-03-22 04:54] VITALS: BP 106/67
[2025-03-22 05:33] LABS: Hematocrit 35.2 % (37.0-47.0); Hemoglobin 12.2 g/dL (12.0-16.0); Mean Corp Hgb Conc. 34.7 g/dL (33.0-37.0); Mean Corpuscular Hgb 30.7 pg (27.0-31.0); Mean Corpuscular Volume 88.7 fL (81.0-99.0); Mean Platelet Volume 11.2 fL (7.4-10.4); Platelet Count 199 10^3/uL (130-400); Red Blood Cell Count 3.97 10^6/uL (4.20-5.40); Red Cell Dist. Width 11.7 % (11.5-14.5); White Blood Cell Count 8.4 10^3/uL (4.8-10.8)
[2025-03-22 05:46] LABS: Blood Urea Nitrogen 19 mg/dl (7-17); Calcium 9.7 mg/dl (8.4-10.2); Carbon Dioxide 24 mmol/L (22-30); Chloride 108 mmol/L (98-107); Estimated Creatinine Clearance 80 ml/min; Glucose 134 mg/dl (70-99); Magnesium 1.9 mg/dl (1.6-2.3); Potassium 4.5 mmol/L (3.5-5.1); Sodium 140 mmol/L (135-145); eGFR > 60.00
[2025-03-22] MEDS: SYNTHROID 88 MCG PO (06:28)
[2025-03-22 06:55] VITALS: BP 120/69
[2025-03-22] MEDS: COZAAR 100 MG PO (07:58)
[2025-03-22] MEDS: LOPRESSOR 25 MG PO (07:58)
[2025-03-22] MEDS: VISBIOME 1 CAP PO (07:58)
--- NOTE | 2025-03-22 10:00 | W.PN.CD ---
Today's Communication / Plan
-
Status post ICD upgrade
Device is looking well without any issues. Chest x-ray is stable.
Stable for discharge from cardiac standpoint.
Impression / Plan
-
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
presents to the emergency department with a chief complaint of presyncope. A device alert the day prior to admission showed NSVT.
Primary drivematic machine operator: Dr. Henry
#Ventricular tachycardia
-Symptomatic (near-syncope).
-Normal LVEF on echo this admission with no significant valvular disease.
-Continue current doses of verapamil and metoprolol tartrate; telemetry remains stable.
-Cardiac catheterization 03/20/25
1. Right dominant circulation with no coronary artery disease. No ischemic nidus for nonsustained ventricular tachycardia identified.
2. Normal filling pressures (LVEDP = 11 mmHg at 81.4 kg).
-s/p upgrade of PPM to ICD on 03/21/25
- Medtronic PPM - implanted on 10/30/23 - dual chamber- now upgraded with PATTERN MOLDER-D device with septal pacing lead into LV.
- Still MRI compatible system.
#Tachycardia/bradycardia syndrome
-Chronic, stable.
-Status post Medtronic dual-chamber pacemaker.
-Currently stable.
#Hypertension
-Chronic, fairly controlled.
-Continue verapamil and metoprolol tartrate.
-Hydrochlorothiazide discontinued this admission.
#Mildly elevated coronary artery calcium score - 86% (RCA 20)
- LDL is at goal of <70 (64)
- Continue rosuvastatin.
#Hypothyroidism with thyroid nodules
-Chronic, stable.
-Continue current dose of levothyroxine.
-TSH 9.59.
-Increase levothyroxine to 100 mcg daily, repeat TSH in 6 weeks.
#PSVT
-Chronic, stable.
-Continue metoprolol and verapamil.
Subjective/Interval History:
No acute events.
No subjective complaints.
Patient's device was reviewed and interrogated. No sign of bleeding. No fluctuation.
DATA:
Transthoracic echocardiogram, 03/17/2025:
CONCLUSIONS
LV ejection fraction is 60-65%. No regional wall motion abnormalities are seen.
Normal right ventricular size and function. Pacer wire seen in right ventricle.
No significant valvular disease.
Mild aortic root dilatation (SOV 3.9 cm).
No significant change since the prior study of 03/04/23.
Cardiac MRI, 10/15/2023:
Normal thickness, wall motion, contractility of the left ventricle. Calculated left ventricular ejection fraction of 55%.
There is no evidence for abnormal enhancement of the left ventricle. There is no evidence for infiltrative cardiomyopathy by MRI.
Left atrium is of normal size with AP dimension of 3.5 cm, within normal range of less than 4.1 cm.
The right atrium appears subjectively within normal limits.
The thoracic aorta has normal caliber.
There are no findings that would suggest sarcoidosis, including no evidence for mediastinal or hilar lymphadenopathy.
Normal morphology, wall motion, contractility of the right ventricle.
No significant valvular dephasing jet identified by MRI.
Physical Exam
Vital Signs/Labs
Vital Signs
Temp Pulse Resp BP Pulse Ox
98.3 F 78 12 120/69 98
03/22/25 07:00 03/22/25 07:00 03/22/25 07:00 03/22/25 06:55 03/22/25 08:00
03/21/25 03/22/25 03/23/25
06:59 06:59 06:59
Actual Weight 82.6 kg
03/22/25 05:06
03/22/25 05:06
PT 13.5 Sec (11.4-14.6) 03/20/25 03:35
INR 1.00 03/20/25 03:35
Magnesium 1.9 mg/dl (1.6-2.3) 03/22/25 05:06
Triglycerides 93 mg/dl (10-149) 03/18/25 02:38
LDL Cholesterol, Calc 64 mg/dl 03/18/25 02:38
VLDL Cholesterol, Calc 18 mg/dl (0-30) 03/18/25 02:38
HDL Cholesterol 49 mg/dl 03/18/25 02:38
Free T4 1.17 ng/dl (0.78-2.19) 03/18/25 02:38
Physical Exam
Constitutional: No acute distress and Comfortable
EENT: Anicteric and Moist mucous membranes
Cardiovascular: Rhythm & rate is regular, Pedal edema is absent and JVD pressure is normal
Respiratory: Respiratory effort normal, Lungs clear to auscul. and Wheeze Absent
GI: Soft, Distention absent and Non tender
Neuro/Psych: Alert, Oriented and AO x 3
Other: Cardiac Device Site
Data Reviewed
-
Date of Service: March 22, 2025
Medical Decision Making: Reviewed Test Results, Test Interpretation and Review of Case with other Provider
EKG: Tracing Personally Visualized and interpreted
Echo: Report Reviewed by me
Labs: Labs Reviewed by me
Old Records: Reviewed
[2025-03-22 10:42] VITALS: BP 159/95
--- NOTE | 2025-03-22 10:59 | CM ---
Chart reviewed. Patient is independent of ADLS, lives with her and college age daughter in a 2 [address], 1 [address]ER[facility], 0 DME. CM to follow
--- NOTE | 2025-03-22 13:53 | PTCARENOTE ---
Pt received this am with no c/o of any pain or sob. OOB ad kathy in the room and the hallway. Right chest incision site clean and dry with aquacell dressing intact. Right arm immobilizer intact.
--- NOTE | 2025-03-22 14:20 | PTCARENOTE ---
Pt discharged to home with her . Discharge instructions given and reviewed with good understanding and all questions answered. Right chest incision remains WNL.
--- NOTE | 2025-03-22 14:24 | W.DCSUMMARY ---
Discharge Summary
Discharge Data
Date of Admission: 03/17/25
Date of Discharge: 03/22/25
-
Pending Results: No
Hospital Course
Primary diagnosis:
Nonsustained ventricular tachycardia symptomatic
Secondary diagnosis:
History of sick sinus syndrome with heart block S/P prior pacemaker
Hypothyroidism
Essential hypertension
Hyperlipidemia
Hospital course:
54-year-old lady with a history of tachybradycardia syndrome s/p permanent pacemaker implantation, elevated coronary calcium score, hypertension, hypothyroidism presented with near syncope. Device interrogation revealed nonsustained ventricular
tachycardia which was felt symptomatic. She is on verapamil which was continued. She was put on beta-sindhu and to accommodate that hydrochlorothiazide was discontinued. She is on combination of losartan/hydrochlorothiazide for hypertension
management.
In review of elevated coronary calcium score and now nonsustained ventricular tachycardia she had a left heart catheterization which showed no ischemic nidus for arrhythmia. Normal filling pressures were noted.
Was evaluated by EP wedding planning internship and had open pacemaker upgraded to ICD yesterday without any immediate complication. Her rhythm was stable.
Today she had no symptoms. Denies any dizziness. No shortness of breath or chest pain. Afebrile and hemodynamically stable. Chest was clear. Heart sound S1 plus S2 regular.
Today she was deemed stable cardiac craft and medically stable for discharge.
Consultants on board:
Interventional cardiology-Lalito Rosado
EP cardiology-Lynnette Marcial
Discharge Plan
-
Patient Disposition: Home (Routine Discharge)
Discharge Diagnosis/Procedures: Ventricular tachycardia -Symptomatic (near-syncope).
Hx of tachy-alexis syndrome s/p PPM
Cardiac catheterization (03/20)
ICD upgrade (03/21)
Diet: Regular
Activity: As tolerated
Driving Restrictions: No driving for 1 week
Bathing Restrictions: OK to Shower
Stand Alone Forms: DC Instructions- Cath/EP Lab, DC Inst - Implanted Device
Referrals:
Zulay Goss CRNP [Specified Professional Personl, Cardiology] - 03/29/25 10:00 am
Referral Note: Post device incision check and hospital followup appointment
Karina Baugh PA-C [Family Provider, Family Practice] - in less than 1 week
Prescriptions:
New
losartan 100 mg Tablet
100 mg PO DAILY Qty: 30 0RF
metoprolol tartrate 25 mg Tablet
25 mg PO BID Qty: 60 0RF
Continued
cetirizine 10 MG tablet
10 mg PO DAILY
levothyroxine 88 MCG tablet
88 mcg PO DAILY
diphenhydramine-acetaminophen [Tylenol PM Extra Strength] 25-500 mg Tablet
2 tab PO HSPRN PRN (Reason: sleep) Qty: 0
Visbiome 112.5 billion cell Capsule
1 cap PO DAILY Qty: 0
multivitamin Tablet
1 tab PO DAILY
verapamil 180 mg Tablet Extended Release
180 mg PO QPM
aspirin 81 mg Tablet,Delayed Release (Dr/Ec)
81 mg PO QPM
rosuvastatin [Crestor] 5 mg Tablet
5 mg PO QPM
Discontinued
losartan-hydrochlorothiazide 100-12.5 mg Tablet
1 tab PO DAILY
Discharge Orders:
Discharge Patient (As Directed); Ordered 03/22/25
Ordered By: Andrew Del Castillo
Care Plan Goals
Care Plan Goals:
Problem: Readiness for enhanced knowledge related to diagnosis and treatment plan
Goal: Understand your diagnosis and treatment plan needs, including medications if applicable.
Instructions: Know your diagnosis, underlying causes and treatment plan options, including medications if applicable. Consult with your health care team to learn about your diagnosis and treatment plan, including medications if applicable.
Discharge Date and Time
Print Language: KU[place]
== END 2025-03-22 15:03 | disposition home or self-care (01) | DRG 277 ==
LOC: IVU 17:23
PROVIDERS: Emergency Medicine; Internal Medicine Cardiovascular Disease; Nurse Practitioner; Nurse Practitioner Adult Health; Nurse Practitioner Gerontology; Registered Nurse; ADMITTING PHYSICIAN Hospitalist; ATTENDING PHYSICIAN Internal Medicine; CONSULT PHYSICIAN Internal Medicine; EMERGENCY PHYSICIAN Emergency Medicine; FAMILY PHYSICIAN Physician Assistant Medical
PROC: 4A023N7 Measurement of Cardiac Sampling and Pressure, Left Heart, Percutaneous Approach (ICD-10-PCS; 2025-03-20)
PROC: B2111ZZ Fluoroscopy of Multiple Coronary Arteries using Low Osmolar Contrast (ICD-10-PCS; 2025-03-20)
PROC: 0JPT0PZ Removal of Cardiac Rhythm Related Device from Trunk Subcutaneous Tissue and Fascia, Open Approach (ICD-10-PCS; 2025-03-21)
PROC: 02HK3KZ Insertion of Defibrillator Lead into Right Ventricle, Percutaneous Approach (ICD-10-PCS; 2025-03-21)
PROC: 0JH609Z Insertion of Cardiac Resynchronization Defibrillator Pulse Generator into Chest Subcutaneous Tissue and Fascia, Open Approach (ICD-10-PCS; 2025-03-21)
PROC: 3E0102A Introduction of Anti-Infective Envelope into Subcutaneous Tissue, Open Approach (ICD-10-PCS; 2025-03-21)
DX: I47.29 Other ventricular tachycardia (principal); I10 Essential (primary) hypertension; E78.00 Pure hypercholesterolemia, unspecified; E03.9 Hypothyroidism, unspecified; I49.5 Sick sinus syndrome; E66.9 Obesity, unspecified; I44.0 Atrioventricular block, first degree; R93.1 Abnormal findings on diagnostic imaging of heart and coronary circulation; Z68.32 Body mass index [BMI] 32.0-32.9, adult; Z95.0 Presence of cardiac pacemaker; Z79.82 Long term (current) use of aspirin; Z82.49 Family history of ischemic heart disease and other diseases of the circulatory system
CPT/HCPCS: 33233; 33249; 71045; 80048; 80053; 80061; 83735; 84439; 84443; 84484; 85025; 85027; 85610; 93005; 93306; 93458; 99152; 99153; 99285; C1769; C1777; C1882; C1892; C1894